=== PATIENT | male | born 1990 | race African-American/Black ===

== ENCOUNTER 2017-06-19 17:47 | Emergency (ER) | payer OTHER ==
[~2017-06-19] VITALS: Ht 160 cm; Wt 65.8 kg
[2017-06-19 20:19] LABS: PLATELET COUNT 268 K/uL (142-355)
[2017-06-19 20:47] LABS: POTASSIUM 3.3 mmol/L (3.6-5.2)
== END 2017-06-19 20:04 | disposition home or self-care (01) ==
LOC: ED 17:47
DX: T78.40XA Allergy, unspecified, initial encounter (principal)
CPT/HCPCS: 36415; 80053; 85027; 99283